=== PATIENT | male | born 1970 | race Caucasian/White ===

== ENCOUNTER 2023-08-11 11:49 | Observation (INO) ==
--- NOTE | 2023-08-11 12:04 | DR.ABDMALE ---
HPI Time seen Time Seen by Provider: 08/11/23 12:03 COVID-19 Coronavirus risk:travel/contact w/high risk person: No Has patient experienced Coronavirus symptoms: No Reviewed Nurses Notes Review: Yes PE Vital Signs Vital Signs: Temp Pulse Resp BP Pulse Ox O2 Del Method 08/11/23 13:00 20 08/11/23 13:57 18 08/11/23 13:28 18 08/11/23 14:30 16 08/11/23 13:30 67 93 L 08/11/23 13:15 70 94 L 08/11/23 13:00 67 97 08/11/23 12:50 66 96 08/11/23 13:27 20 08/11/23 12:58 20 08/11/23 12:36 130/73 08/11/23 12:36 66 30 H 96 08/11/23 12:30 65 28 H 98 08/11/23 12:30 98.7 F 63 20 141/78 100 Room Air 08/11/23 12:30 22 ROR Labs Reviewed 08/11/23 12:25 08/11/23 12:25 Laboratory: WBC 8.5 X10^3/uL (3.6-10.0) 08/11/23 12:25 RBC 4.84 X10^6/uL (4.7-6.0) 08/11/23 12:25 Hgb 14.6 g/dL (13.5-18.0) 08/11/23 12:25 Hct 42.9 % (42.0-54.0) 08/11/23 12:25 MCV 88.6 fL (80.0-100.0) 08/11/23 12:25 MCH 30.1 pg (27.0-34.0) 08/11/23 12:25 MCHC 34.0 g/dL (33.0-35.0) 08/11/23 12:25 RDW 13.6 % (11.6-16.5) 08/11/23 12:25 Plt Count 225 X10^3/uL (150.0-450.0) 08/11/23 12:25 MPV 8.3 fL (7.4-11.0) 08/11/23 12:25 Neut % (Auto) 70.0 % (42.0-75.0) 08/11/23 12:25 Lymph % (Auto) 18.7 % (21.0-51.0) L 08/11/23 12:25 [place] % (Auto) 8.2 % (0.0-13.0) 08/11/23 12:25 Eos % (Auto) 2.6 % (0.9-2.9) 08/11/23 12:25 Baso % (Auto) 0.5 % (0.2-1.0) 08/11/23 12:25 Neut # (Auto) 6.0 x10^3/uL (2.2-4.8) H 08/11/23 12:25 Lymph # (Auto) 1.6 X10^3/uL (1.3-2.9) 08/11/23 12:25 [place] # (Auto) 0.7 x10^3/uL (0.3-0.8) 08/11/23 12:25 Eos # (Auto) 0.2 x10^3/uL (0.0-0.2) 08/11/23 12:25 Baso # (Auto) 0.0 X10^3/uL (0.0-0.1) 08/11/23 12:25 Absolute Nucleated RBC 0.1 /100WBC 08/11/23 12:25 Sodium 136 mmol/L (136-145) 08/11/23 12:25 Corrected Sodium TNP 08/11/23 12:25 Potassium 4.0 mmol/L (3.5-5.1) 08/11/23 12:25 Chloride 98 mmol/L (98-107) 08/11/23 12:25 Carbon Dioxide 30.1 mmol/L (21-32) 08/11/23 12:25 BUN 18 mg/dL (7-18) 08/11/23 12:25 Creatinine 2.00 mg/dL (0.70-1.30) H 08/11/23 12:25 Est GFR (MDRD) Af Amer 45 (>60) L 08/11/23 12:25 Est GFR (MDRD) Non-Af 37 (>60) L 08/11/23 12:25 Glucose 105 mg/dL (65-99) H 08/11/23 12:25 Calcium 7.9 mg/dL (8.5-10.1) L 08/11/23 12:25 Corrected Calcium 8.5 mg/dL (8.5-10.1) 08/11/23 12:25 Total Bilirubin 0.50 mg/dL (0.2-1.0) 08/11/23 12:25 AST 20 Units/L (15-37) 08/11/23 12:25 ALT 40 Units/L (12-78) 08/11/23 12:25 Alkaline Phosphatase 109 Units/L (46-116) 08/11/23 12:25 Total Protein 6.9 g/dL (6.4-8.2) 08/11/23 12:25 Albumin 3.3 g/dL (3.4-5.0) L 08/11/23 12:25 Globulin 3.6 g/dL (2.5-4.5) 08/11/23 12:25 Albumin/Globulin Ratio 0.9 Ratio (1.1-2.1) L 08/11/23 12:25 Opioid Opioid Risk Tool Age (Darnell box if 16-45): No History of Preadolescent Sexual Abuse: No Total: 0 Total Score Risk Category: Low Risk Copyright: Christopher LIZAMA predicting aberrant behaviors Discharge Plan Diagnosis Discharge Problem: Abdominal pain, acute, right lower quadrant Discharge Plan Patient Disposition: 01 HOME, SELF-CARE Condition: Stable Orders to Discharge Patient Discharge Orders: Transfer (Routine); Ordered 08/11/23 Ordered By: SUMA CHEW
[2023-08-11] MEDS ORDERED: NS 1,000 ML IV 1,000 ML ONE ×2 (12:16→14:27)
[2023-08-11] MEDS ORDERED: ZOFRAN INJ 4 MG VIAL ONE (12:16)
[2023-08-11] MEDS ORDERED: MORPHINE SULFATE INJ 2 MG INJ ONE ×2 (12:20→12:32)
[2023-08-11] MEDS ORDERED: ZOFRAN INJ 4 MG VIAL IVP ONE (12:26)
[2023-08-11] MEDS ORDERED: MORPHINE SULFATE INJ 4 MG IVP ONE (12:26)
[2023-08-11] MEDS: NS 1,000 ML IV 1,000 ML IV ONE ×2 (12:29→12:30)
[2023-08-11] MEDS: NS 1,000 ML IV 1,000 ML IV SCH ×3 (12:30→17:07)
[2023-08-11 12:33] LABS: BASOPHILS % (AUTO) 0.5 % (0.2-1.0); EOSINOPHILS # (AUTO) 0.2 x10^3/uL (0.0-0.2); EOSINOPHILS % (AUTO) 2.6 % (0.9-2.9); HEMATOCRIT 42.9 % (42.0-54.0); HEMOGLOBIN 14.6 g/dL (13.5-18.0); LYMPHOCYTES # (AUTO) 1.6 X10^3/uL (1.3-2.9); LYMPHOCYTES % (AUTO) 18.7 % (21.0-51.0); MEAN CORPUSCULAR HEMOGLOBIN 30.1 pg (27.0-34.0); MEAN CORPUSCULAR VOLUME 88.6 fL (80.0-100.0); MEAN PLATELET VOLUME 8.3 fL (7.4-11.0); MONOCYTES # (AUTO) 0.7 x10^3/uL (0.3-0.8); MONOCYTES % (AUTO) 8.2 % (0.0-13.0); PLATELET COUNT 225 X10^3/uL (150.0-450.0); RED BLOOD COUNT 4.84 X10^6/uL (4.7-6.0); RED CELL DISTRIBUTION WIDTH 13.6 % (11.6-16.5); WHITE BLOOD COUNT 8.5 X10^3/uL (3.6-10.0)
[2023-08-11 12:36] VITALS: BMI 39.0
[2023-08-11 12:45] LABS: ALANINE AMINOTRANSFERASE 40 Units/L (12-78); ALBUMIN 3.3 g/dL (3.4-5.0); ALKALINE PHOSPHATASE 109 Units/L (46-116); ASPARTATE AMINO TRANSFERASE 20 Units/L (15-37); BLOOD UREA NITROGEN 18 mg/dL (7-18); CALCIUM 7.9 mg/dL (8.5-10.1); CARBON DIOXIDE 30.1 mmol/L (21-32); CHLORIDE 98 mmol/L (98-107); COR CA(FOR HYPOALB) 8.5 mg/dL (8.5-10.1); GLUCOSE 105 mg/dL (65-99); SODIUM 136 mmol/L (136-145); TOTAL PROTEIN 6.9 g/dL (6.4-8.2); eGFR NON BLACK RACES 37 (>60)
[2023-08-11] MEDS ORDERED: DILAUDID INJ ONE ×3 (12:52→14:21)
[2023-08-11] MEDS ORDERED: DILAUDID INJ IVP ONE ×3 (12:54→14:20)
--- NOTE | 2023-08-11 13:43 | CT ---
EXAM:ABDOMEN/PELVIS W/O CONHISTORY:PAIN;COMPARISON:None available.TECHNIQUE:Helical CT images of the abdomen and pelvis. ABDOMEN/PELVIS W/O CON. Coronal and sagittal images are obtained. Dose reduction techniques including Automated Exposure Control (AEC) and adjustment of mA and kV were utilized.FINDINGS:Lower chest: No significant abnormality.Liver: Diffuse hepatic steatosis.Gallbladder and Bile Ducts:Surgical clips in gallbladder fossa consistent with a surgically absent gallbladder.Pancreas: No significant abnormalitySpleen: No significant abnormalityAdrenals: No significant abnormalityKidneys: No significant abnormalityBladder: No significant abnormalityReproductive Structures: No significant abnormality.Bowel and Stomach: No significant abnormalityAppendix: No evidence for acute appendicitis.Lymph Nodes: No significant lymphadenopathyVasculature: Abdominal aorta and branching vessels are normal in caliberOther: No free air, free fluid, or focal fluid collectionOsseous Structures: No acute osseous findingsIMPRESSION:1. Diffuse hepatic steatosis.2. 2 cm diameter inguinal fatty hernias noted.THIS IS AN ELECTRONICALLY VERIFIED FINAL [id number]/11/2023 1:40 PM - Electronically signed by Robe Phelan DO
[2023-08-11] MEDS ORDERED: COMPAZINE INJ IVP ONE (14:50)
[2023-08-11] MEDS ORDERED: COMPAZINE INJ ONE (14:50)
[2023-08-11] MEDS ORDERED: ZOFRAN INJ 4 MG VIAL IVP PRN (16:52)
[2023-08-11 19:24] LABS: BILIRUBIN,URINE NEGATIVE (NEGATIVE); BLOOD/HEMOGLOBIN,URINE NEGATIVE (NEGATIVE); GLUCOSE, URINE NEGATIVE (NEGATIVE); KETONES,URINE NEGATIVE (NEGATIVE); LEUKOCYTE ESTERASE ,URINE 2+ (NEGATIVE); NITRITES,URINE NEGATIVE (NEGATIVE); PROTEIN,URINE NEGATIVE (NEGATIVE); UROBILINOGEN,URINE NORMAL (NORMAL)
[2023-08-11 19:34] LABS: APPEARANCE,URINE CLEAR (CLEAR); BACTERIA,URINE TRACE /HPF (NEGATIVE); COLOR,URINE PALE YELLOW (YELLOW); RBC,URINE 0-2 /HPF (0-3); SQUAMOUS EPITHELIAL CELL,UR RARE /HPF (NEGATIVE)
[2023-08-11 19:35] LABS: OTHER CASTS, URINE RARE /LPF (NEGATIVE)
[2023-08-11] MEDS: DILAUDID INJ IVP PRN ×2 (19:38→23:38)
--- NOTE | 2023-08-11 22:45 | DR.H&P ---
H&P History & Physical for Day of: H&P Date: 08/11/23 Chief Complaint Chief Complaint: acute onset RLQ pain Allergies Allergies Allergy/AdvReac Type Severity Reaction Status Date / Time shrimp Allergy Unknown Verified 09/28/21 10:16 History of Present Illness History of Present Illness: 53 yo male with acute onset RLQ pain this AM with nausea and vomiting. evaluated in ER. WBC not elevated.CT unremarkable Past Medical History Past Medical History: Dyslipidemia, Hyperthyroidism and Hypothyroidism Past Surgical History Surgical History: Cholecystectomy and Thyroidectomy Family History Family Medical History: Diabetes Mellitus and Hypertension Social History Does patient currently use any type of tobacco product: No Have you used tobacco products in the last 12 months: No Type of Tobacco Use: None Does any household member use tobacco: No Alcohol Use: None Drug Use: None Medications Home Medications: Home Medications Medication Instructions Recorded Confirmed Type alprazolam 1 mg tablet 2 mg PO HS PRN 08/11/23 08/11/23 History atenolol 100 mg tablet 100 mg PO QDAY 08/11/23 08/11/23 History cyclobenzaprine 10 mg tablet 20 mg PO HS 08/11/23 08/11/23 History levothyroxine 112 mcg tablet 112 mcg PO QDAY 08/11/23 08/11/23 History losartan 100 mg tablet 100 mg PO HS 08/11/23 08/11/23 History omeprazole 40 mg capsule,delayed 40 mg PO HS 08/11/23 08/11/23 History release temazepam 30 mg capsule 60 mg PO HS PRN 08/11/23 08/11/23 History Labs 08/11/23 12:25 08/11/23 12:25 Labs: Laboratory WBC 8.5 X10^3/uL (3.6-10.0) 08/11/23 12:25 RBC 4.84 X10^6/uL (4.7-6.0) 08/11/23 12:25 Hgb 14.6 g/dL (13.5-18.0) 08/11/23 12:25 Hct 42.9 % (42.0-54.0) 08/11/23 12:25 MCV 88.6 fL (80.0-100.0) 08/11/23 12:25 MCH 30.1 pg (27.0-34.0) 08/11/23 12:25 MCHC 34.0 g/dL (33.0-35.0) 08/11/23 12:25 RDW 13.6 % (11.6-16.5) 08/11/23 12:25 Plt Count 225 X10^3/uL (150.0-450.0) 08/11/23 12:25 MPV 8.3 fL (7.4-11.0) 08/11/23 12:25 Neut % (Auto) 70.0 % (42.0-75.0) 08/11/23 12:25 Lymph % (Auto) 18.7 % (21.0-51.0) L 08/11/23 12:25 [place] % (Auto) 8.2 % (0.0-13.0) 08/11/23 12:25 Eos % (Auto) 2.6 % (0.9-2.9) 08/11/23 12:25 Baso % (Auto) 0.5 % (0.2-1.0) 08/11/23 12:25 Neut # (Auto) 6.0 x10^3/uL (2.2-4.8) H 08/11/23 12:25 Lymph # (Auto) 1.6 X10^3/uL (1.3-2.9) 08/11/23 12:25 [place] # (Auto) 0.7 x10^3/uL (0.3-0.8) 08/11/23 12:25 Eos # (Auto) 0.2 x10^3/uL (0.0-0.2) 08/11/23 12:25 Baso # (Auto) 0.0 X10^3/uL (0.0-0.1) 08/11/23 12:25 Absolute Nucleated RBC 0.1 /100WBC 08/11/23 12:25 Sodium 136 mmol/L (136-145) 08/11/23 12:25 Corrected Sodium TNP 08/11/23 12:25 Potassium 4.0 mmol/L (3.5-5.1) 08/11/23 12:25 Chloride 98 mmol/L (98-107) 08/11/23 12:25 Carbon Dioxide 30.1 mmol/L (21-32) 08/11/23 12:25 BUN 18 mg/dL (7-18) 08/11/23 12:25 Creatinine 2.00 mg/dL (0.70-1.30) H 08/11/23 12:25 Est GFR (MDRD) Af Amer 45 (>60) L 08/11/23 12:25 Est GFR (MDRD) Non-Af 37 (>60) L 08/11/23 12:25 Glucose 105 mg/dL (65-99) H 08/11/23 12:25 Calcium 7.9 mg/dL (8.5-10.1) L 08/11/23 12:25 Corrected Calcium 8.5 mg/dL (8.5-10.1) 08/11/23 12:25 Total Bilirubin 0.50 mg/dL (0.2-1.0) 08/11/23 12:25 AST 20 Units/L (15-37) 08/11/23 12:25 ALT 40 Units/L (12-78) 08/11/23 12:25 Alkaline Phosphatase 109 Units/L (46-116) 08/11/23 12:25 Total Protein 6.9 g/dL (6.4-8.2) 08/11/23 12:25 Albumin 3.3 g/dL (3.4-5.0) L 08/11/23 12:25 Globulin 3.6 g/dL (2.5-4.5) 08/11/23 12:25 Albumin/Globulin Ratio 0.9 Ratio (1.1-2.1) L 08/11/23 12:25 Specimen Type Clean catch urine 08/11/23 19:08 Urine Color Pale yellow (YELLOW) 08/11/23 19:08 Urine Appearance Clear (CLEAR) 08/11/23 19:08 Urine pH 5.0 (5.0 - 8.0) 08/11/23 19:08 Ur Specific [place] 1.020 (1.000-1.030) 08/11/23 19:08 Urine Protein Negative (NEGATIVE) 08/11/23 19:08 Urine Glucose (UA) Negative (NEGATIVE) 08/11/23 19:08 Urine Ketones Negative (NEGATIVE) 08/11/23 19:08 Urine Blood Negative (NEGATIVE) 08/11/23 19:08 Urine Nitrite Negative (NEGATIVE) 08/11/23 19:08 Urine Bilirubin Negative (NEGATIVE) 08/11/23 19:08 Urine Urobilinogen Normal (NORMAL) 08/11/23 19:08 Ur Leukocyte Esterase 2+ (NEGATIVE) 08/11/23 19:08 Urine RBC 0-2 /HPF (0-3) 08/11/23 19:08 Urine WBC 30-50 /HPF (0-5) A 08/11/23 19:08 Ur Squamous Epith Cells Rare /HPF (NEGATIVE) 08/11/23 19:08 Urine Bacteria Trace /HPF (NEGATIVE) 08/11/23 19:08 Other Casts Rare /LPF (NEGATIVE) 08/11/23 19:08 Urine Mucus Rare /HPF (NEGATIVE) 08/11/23 19:08 Ur Culture Indicated? Yes/culture set up 08/11/23 19:08 Review of Systems Constitutional: See HPI Eyes: No Symptoms Reported ENT: No Symptoms Reported Respiratory: No Symptoms Reported Cardiovascular: No Symptoms Reported Genitourinary: No Symptoms Reported Musculoskeletal: No Symptoms Reported Skin: No Symptoms Reported Neurological: No Symptoms Reported Physical Exam Vital Signs: Vital Signs Temperature 97.9 F Temperature 97.3 F Pulse Rate [Left] 64 Pulse Rate [Left] 57 Pulse Rate 66 Pulse Rate 61 Pulse Rate 56 Pulse Rate 59 Pulse Rate 68 Pulse Rate 65 Respiratory Rate 20 Respiratory Rate 18 Respiratory Rate 18 Respiratory Rate 18 Blood Pressure [Right Arm] 106/59 Blood Pressure [Right Arm] 104/57 O2 Sat by Pulse Oximetry 95 O2 Sat by Pulse Oximetry 97 O2 Sat by Pulse Oximetry 95 O2 Sat by Pulse Oximetry 96 O2 Sat by Pulse Oximetry 94 O2 Sat by Pulse Oximetry 92 O2 Sat by Pulse Oximetry 94 Oriented: Normal, Time, Person and Place Eyes: Normal Ear: Normal Nose: Normal Throat: Normal Respiratory: Clear Throughout Cardiovascular: Normal : Normal Auscultation: Bowel Sounds: Normal Palpation: Other (no masses) Tenderness: RLQ (no rebound or guarding) Skin: Normal Musculoskeletal: Normal Psychiatric: Normal Mood Description: Calm Affect: Normal Speech Pattern: Clear Assessment/Plan (1) Abdominal pain, acute, right lower quadrant: Status: Acute Plan: NPO, IVFS repeat labs in AM . If not improved clinically with perform laparoscopy and laparoscopic appendectomy.
[2023-08-12] MEDS: NS 1,000 ML IV 1,000 ML IV SCH (04:24)
[2023-08-12] MEDS: DILAUDID INJ IVP PRN (04:31)
[2023-08-12] MEDS ORDERED: HIBICLENS WASH EXT ONE (04:35)
[2023-08-12] MEDS ORDERED: HIBICLENS WASH ONE (04:37)
[2023-08-12 05:49] VITALS: RESP 18
[2023-08-12 06:37] LABS: BASOPHILS % (AUTO) 0.3 % (0.2-1.0); EOSINOPHILS # (AUTO) 0.2 x10^3/uL (0.0-0.2); EOSINOPHILS % (AUTO) 2.7 % (0.9-2.9); HEMATOCRIT 41.1 % (42.0-54.0); HEMOGLOBIN 13.9 g/dL (13.5-18.0); LYMPHOCYTES # (AUTO) 1.5 X10^3/uL (1.3-2.9); LYMPHOCYTES % (AUTO) 19.5 % (21.0-51.0); MEAN CORPUSCULAR HGB CONC 33.9 g/dL (33.0-35.0); MEAN CORPUSCULAR VOLUME 88.5 fL (80.0-100.0); MEAN PLATELET VOLUME 9.2 fL (7.4-11.0); MONOCYTES # (AUTO) 0.6 x10^3/uL (0.3-0.8); MONOCYTES % (AUTO) 8.5 % (0.0-13.0); NEUTROPHILS # (AUTO) 5.3 x10^3/uL (2.2-4.8); PLATELET COUNT 203 X10^3/uL (150.0-450.0); RED BLOOD COUNT 4.65 X10^6/uL (4.7-6.0); RED CELL DISTRIBUTION WIDTH 14.1 % (11.6-16.5); WHITE BLOOD COUNT 7.6 X10^3/uL (3.6-10.0)
[2023-08-12 07:04] LABS: ALANINE AMINOTRANSFERASE 35 Units/L (12-78); ALBUMIN 2.9 g/dL (3.4-5.0); ALKALINE PHOSPHATASE 96 Units/L (46-116); AMYLASE 22 Units/L (25-115); ASPARTATE AMINO TRANSFERASE 22 Units/L (15-37); BLOOD UREA NITROGEN 19 mg/dL (7-18); CALCIUM 7.7 mg/dL (8.5-10.1); CARBON DIOXIDE 31.8 mmol/L (21-32); CHLORIDE 102 mmol/L (98-107); COR CA(FOR HYPOALB) 8.6 mg/dL (8.5-10.1); CREATININE 1.78 mg/dL (0.70-1.30); GLUCOSE 97 mg/dL (65-99); LIPASE 25 Units/L (16-77); POTASSIUM 4.2 mmol/L (3.5-5.1); SODIUM 139 mmol/L (136-145); TOTAL PROTEIN 6.2 g/dL (6.4-8.2); eGFR NON BLACK RACES 43 (>60)
[2023-08-12 08:18] VITALS: BP 103/55; PULSE 78; TEMP 98.3; O2SAT 93
--- NOTE | 2023-08-13 16:17 | W.DIS.FURT ---
Summary of Discharge Discharge Summary of Date Date of Exam: 08/11/23 Admission Date Date of Admission: 08/11/23 Admission Diagnosis Patient Problems (Updated 08/11/23 @ 15:33 by SUMA CHEW) Abdominal pain, acute, right lower quadrant (Acute) R10.31 Hospital Course: 53 yo male admitted with acute onset RLQ pain the AM of admission. Seen in the ER. Afebile, WBC wnl and CT without contrast showed no evidence of acute appendicitis. On exam had rebound. Admitted , hydrated and remained NPO. Repeat WBC the next AM alos WNL. C/O RLQ pain but it was better and on exam had benign abdomen withe no tenderness to palpation and no rebound . Discharged and is to call me tomorrow for follow up and call any time for change in or worsening of symptoms. Vital Signs: Vital Signs (72 hours) 08/11/23 12:30 08/11/23 12:30 08/11/23 12:30 Temperature 98.7 F Pulse Rate 63 65 Pulse Rate [Left] Respiratory Rate 22 20 28 H Blood Pressure 141/78 Blood Pressure [Right Arm] O2 Sat by Pulse Oximetry 100 98 Oxygen Delivery Method Room Air FIO2% 08/11/23 12:36 08/11/23 12:36 08/11/23 12:58 Temperature Pulse Rate 66 Pulse Rate [Left] Respiratory Rate 30 H 20 Blood Pressure 130/73 Blood Pressure [Right Arm] O2 Sat by Pulse Oximetry 96 Oxygen Delivery Method FIO2% 08/11/23 13:27 08/11/23 12:50 08/11/23 13:00 Temperature Pulse Rate 66 67 Pulse Rate [Left] Respiratory Rate 20 Blood Pressure Blood Pressure [Right Arm] O2 Sat by Pulse Oximetry 96 97 Oxygen Delivery Method FIO2% 08/11/23 13:15 08/11/23 13:30 08/11/23 14:30 Temperature Pulse Rate 70 67 Pulse Rate [Left] Respiratory Rate 16 Blood Pressure Blood Pressure [Right Arm] O2 Sat by Pulse Oximetry 94 L 93 L Oxygen Delivery Method FIO2% 08/11/23 13:28 08/11/23 13:57 08/11/23 13:00 Temperature Pulse Rate Pulse Rate [Left] Respiratory Rate 18 18 20 Blood Pressure Blood Pressure [Right Arm] O2 Sat by Pulse Oximetry Oxygen Delivery Method FIO2% 08/11/23 13:45 08/11/23 14:23 08/11/23 14:30 Temperature Pulse Rate 66 65 66 Pulse Rate [Left] Respiratory Rate Blood Pressure Blood Pressure [Right Arm] O2 Sat by Pulse Oximetry 95 96 96 Oxygen Delivery Method FIO2% 08/11/23 14:45 08/11/23 15:00 08/11/23 15:15 Temperature Pulse Rate 65 68 59 L Pulse Rate [Left] Respiratory Rate Blood Pressure Blood Pressure [Right Arm] O2 Sat by Pulse Oximetry 94 L 92 L 94 L Oxygen Delivery Method FIO2% 08/11/23 15:30 08/11/23 15:45 08/11/23 16:00 Temperature Pulse Rate 56 L 61 66 Pulse Rate [Left] Respiratory Rate Blood Pressure Blood Pressure [Right Arm] O2 Sat by Pulse Oximetry 96 95 97 Oxygen Delivery Method FIO2% 08/11/23 16:40 08/11/23 16:04 08/11/23 16:56 Temperature 97.3 F L Pulse Rate Pulse Rate [Left] 57 L Respiratory Rate 18 Blood Pressure Blood Pressure [Right Arm] 104/57 O2 Sat by Pulse Oximetry Oxygen Delivery Method Room Air Room Air Room Air FIO2% 08/11/23 19:38 08/11/23 23:38 08/11/23 19:00 Temperature Pulse Rate Pulse Rate [Left] Respiratory Rate 18 20 Blood Pressure Blood Pressure [Right Arm] O2 Sat by Pulse Oximetry Oxygen Delivery Method Room Air FIO2% 08/11/23 20:08 08/11/23 20:00 08/11/23 23:46 Temperature 97.9 F 98.6 F Pulse Rate Pulse Rate [Left] 64 76 Respiratory Rate 20 18 18 Blood Pressure Blood Pressure [Right Arm] 106/59 121/62 O2 Sat by Pulse Oximetry 95 94 L Oxygen Delivery Method Room Air Room Air FIO2% 08/11/23 20:30 08/12/23 00:08 08/12/23 04:31 Temperature Pulse Rate Pulse Rate [Left] Respiratory Rate 22 22 Blood Pressure Blood Pressure [Right Arm] O2 Sat by Pulse Oximetry Oxygen Delivery Method Room Air FIO2% 21 08/12/23 04:00 08/12/23 05:01 08/12/23 08:00 Temperature 98.4 F 98.3 F Pulse Rate Pulse Rate [Left] 77 78 Respiratory Rate 18 18 18 Blood Pressure Blood Pressure [Right Arm] 128/60 103/55 O2 Sat by Pulse Oximetry 94 L 93 L Oxygen Delivery Method Room Air Room Air FIO2% 08/12/23 08:38 08/12/23 07:00 Temperature Pulse Rate Pulse Rate [Left] Respiratory Rate Blood Pressure Blood Pressure [Right Arm] O2 Sat by Pulse Oximetry Oxygen Delivery Method Room Air Room Air FIO2% Labs: Laboratory Last Values WBC 7.6 X10^3/uL (3.6-10.0) 08/12/23 05:24 RBC 4.65 X10^6/uL (4.7-6.0) L 08/12/23 05:24 Hgb 13.9 g/dL (13.5-18.0) 08/12/23 05:24 Hct 41.1 % (42.0-54.0) L 08/12/23 05:24 MCV 88.5 fL (80.0-100.0) 08/12/23 05:24 MCH 30.0 pg (27.0-34.0) 08/12/23 05:24 MCHC 33.9 g/dL (33.0-35.0) 08/12/23 05:24 RDW 14.1 % (11.6-16.5) 08/12/23 05:24 Plt Count 203 X10^3/uL (150.0-450.0) 08/12/23 05:24 MPV 9.2 fL (7.4-11.0) 08/12/23 05:24 Neut % (Auto) 69.0 % (42.0-75.0) 08/12/23 05:24 Lymph % (Auto) 19.5 % (21.0-51.0) L 08/12/23 05:24 [place] % (Auto) 8.5 % (0.0-13.0) 08/12/23 05:24 Eos % (Auto) 2.7 % (0.9-2.9) 08/12/23 05:24 Baso % (Auto) 0.3 % (0.2-1.0) 08/12/23 05:24 Neut # (Auto) 5.3 x10^3/uL (2.2-4.8) H 08/12/23 05:24 Lymph # (Auto) 1.5 X10^3/uL (1.3-2.9) 08/12/23 05:24 [place] # (Auto) 0.6 x10^3/uL (0.3-0.8) 08/12/23 05:24 Eos # (Auto) 0.2 x10^3/uL (0.0-0.2) 08/12/23 05:24 Baso # (Auto) 0.0 X10^3/uL (0.0-0.1) 08/12/23 05:24 Absolute Nucleated RBC 0.3 /100WBC 08/12/23 05:24 Sodium 139 mmol/L (136-145) 08/12/23 05:24 Corrected Sodium TNP 08/12/23 05:24 Potassium 4.2 mmol/L (3.5-5.1) 08/12/23 05:24 Chloride 102 mmol/L (98-107) 08/12/23 05:24 Carbon Dioxide 31.8 mmol/L (21-32) 08/12/23 05:24 BUN 19 mg/dL (7-18) H 08/12/23 05:24 Creatinine 1.78 mg/dL (0.70-1.30) H 08/12/23 05:24 Est GFR (MDRD) Af Amer 52 (>60) L 08/12/23 05:24 Est GFR (MDRD) Non-Af 43 (>60) L 08/12/23 05:24 Glucose 97 mg/dL (65-99) 08/12/23 05:24 Calcium 7.7 mg/dL (8.5-10.1) L 08/12/23 05:24 Corrected Calcium 8.6 mg/dL (8.5-10.1) 08/12/23 05:24 Total Bilirubin 0.60 mg/dL (0.2-1.0) 08/12/23 05:24 AST 22 Units/L (15-37) 08/12/23 05:24 ALT 35 Units/L (12-78) 08/12/23 05:24 Alkaline Phosphatase 96 Units/L (46-116) 08/12/23 05:24 Total Protein 6.2 g/dL (6.4-8.2) L 08/12/23 05:24 Albumin 2.9 g/dL (3.4-5.0) L 08/12/23 05:24 Globulin 3.3 g/dL (2.5-4.5) 08/12/23 05:24 Albumin/Globulin Ratio 0.9 Ratio (1.1-2.1) L 08/12/23 05:24 Amylase 22 Units/L (25-115) L 08/12/23 05:24 Lipase 25 Units/L (16-77) 08/12/23 05:24 Specimen Type Clean catch urine 08/11/23 19:08 Urine Color Pale yellow (YELLOW) 08/11/23 19:08 Urine Appearance Clear (CLEAR) 08/11/23 19:08 Urine pH 5.0 (5.0 - 8.0) 08/11/23 19:08 Ur Specific [place] 1.020 (1.000-1.030) 08/11/23 19:08 Urine Protein Negative (NEGATIVE) 08/11/23 19:08 Urine Glucose (UA) Negative (NEGATIVE) 08/11/23 19:08 Urine Ketones Negative (NEGATIVE) 08/11/23 19:08 Urine Blood Negative (NEGATIVE) 08/11/23 19:08 Urine Nitrite Negative (NEGATIVE) 08/11/23 19:08 Urine Bilirubin Negative (NEGATIVE) 08/11/23 19:08 Urine Urobilinogen Normal (NORMAL) 08/11/23 19:08 Ur Leukocyte Esterase 2+ (NEGATIVE) 08/11/23 19:08 Urine RBC 0-2 /HPF (0-3) 08/11/23 19:08 Urine WBC 30-50 /HPF (0-5) A 08/11/23 19:08 Ur Squamous Epith Cells Rare /HPF (NEGATIVE) 08/11/23 19:08 Urine Bacteria Trace /HPF (NEGATIVE) 08/11/23 19:08 Other Casts Rare /LPF (NEGATIVE) 08/11/23 19:08 Urine Mucus Rare /HPF (NEGATIVE) 08/11/23 19:08 Ur Culture Indicated? Yes/culture set up 08/11/23 19:08 Reason For Visit: RIGHT LOWER QUARDRANT ABDOMINAL PAIN Discharge Date Discharge Date: 08/12/23 Discharge Diagnosis All Active Problems (Updated 08/11/23 @ 15:33 by SUMA CHEW) Abdominal pain, acute, right lower quadrant (Acute) COVID-19 (Acute) Plan of Treatment: Continue with present treatment and follow up plan. Pt is to keep follow up appointment as instructed and take medications as ordered. Discharge Medications Discharge Medications: shrimp Allergy (Unknown, Verified 09/28/21 10:16) CONTINUE taking the following medications alprazolam 1 mg tablet 2 mg PO HS PRN 08/11/23 [History] atenolol 100 mg tablet 100 mg PO QDAY 08/11/23 [History] cyclobenzaprine 10 mg tablet 20 mg PO HS 08/11/23 [History] levothyroxine 112 mcg tablet 112 mcg PO QDAY 08/11/23 [History] losartan 100 mg tablet 100 mg PO HS 08/11/23 [History] omeprazole 40 mg capsule,delayed release 40 mg PO HS 08/11/23 [History] temazepam 30 mg capsule 60 mg PO HS PRN 08/11/23 [History] Discharge Disposition Assessment: see hospital course Discharge Plan Discharge Plan Hospital Course: 53 yo male admitted with acute onset RLQ pain the AM of admission. Seen in the ER. Afebile, WBC wnl and CT without contrast showed no evidence of acute appendicitis. On exam had rebound. Admitted , hydrated and remained NPO. Repeat WBC the next AM alos WNL. C/O RLQ pain but it was better and on exam had benign abdomen withe no tenderness to palpation and no rebound . Discharged and is to call me tomorrow for follow up and call any time for change in or worsening of symptoms. Patient Disposition: 01 HOME, SELF-CARE Condition: Stable Health Concerns: Post Hospitalization: new medications and changes needed to prevent readmission or further decline. Pt educated and given instructions on all concerns. Plan of Treatment: Continue with present treatment and follow up plan. Pt is to keep follow up appointment as instructed and take medications as ordered. Assessment: see hospital course Prescription drug monitoring program results: PDMP was not reviewed Prescriptions: Continued atenolol 100 mg tablet 100 mg PO QDAY losartan 100 mg tablet 100 mg PO HS levothyroxine 112 mcg tablet 112 mcg PO QDAY alprazolam 1 mg tablet 2 mg PO HS PRN temazepam 30 mg capsule 60 mg PO HS PRN cyclobenzaprine 10 mg tablet 20 mg PO HS omeprazole 40 mg capsule,delayed release(DR/EC) 40 mg PO HS Orders to Discharge Patient Discharge Orders: Discharge (Routine); Ordered 08/12/23 Ordered By: Yaakov Elizabeth Instructions Stand Alone Forms: Excuse From Work or School, Post Hospital Follow Up Care
== END 2023-08-12 10:45 | disposition home or self-care (01) ==
LOC: ER 11:49 → MED/SURG 12:15
PROVIDERS: ADMIT Surgery; ATTEND Surgery
DX: I10 Essential (primary) hypertension; N28.89 Other specified disorders of kidney and ureter; Z79.899 Other long term (current) drug therapy; K21.9 Gastro-esophageal reflux disease without esophagitis; R10.31 Right lower quadrant pain

== ENCOUNTER 2024-04-23 06:58 | Observation (INO) ==
[2024-04-23] MEDS: NS 1,000 ML IV 1,000 ML IV ONE (07:14)
--- NOTE | 2024-04-23 07:15 | DR.GENAD ---
HPI Time Seen Time Seen by Provider: 04/23/24 07:06 HPI Comment HPI Comment: History as above. Complaint/Symptoms Chief Complaint Doctors Comments: Patient is 54-year-old male in the emergency room with right flank pain that started suddenly COVID-19 Coronavirus risk:travel/contact w/high risk person: No Has patient experienced Coronavirus symptoms: No Nurses notes reviewed Nurses Notes Review: Yes PMH PMH Past Medical History: Yes Past Medical History: Dyslipidemia, Hyperthyroidism and Hypothyroidism Past Surgical History: Yes Surgical History: Cholecystectomy and Thyroidectomy Family History History of Family Medical Conditions: Yes Family Medical History: Diabetes Mellitus and Hypertension Social History Does patient currently use any type of tobacco product: No Have you used tobacco products in the last 12 months: No Type of Tobacco Use: None Does any household member use tobacco: No Alcohol Use: Occasionally Do you use any recreational Drugs:: No Lives With: Family Lives Where: Home Travel Risk Coronavirus risk:travel/contact w/high risk person: No Has patient experienced Coronavirus symptoms: No Infectious screening In the last 2 months have you had wt loss of >10#?: NO Have you had fever, night sweats or hemotysis?: No Have you traveled outside the country in the last 6 months?: No Isolation: Standard ROS Review of Systems Constitutional: No Symptoms Reported Eyes: No Symptoms Reported ENTM: No Symptoms Reported Respiratoy: No Symptoms Reported Cardiovascular: No Symptoms Reported Gastrointestinal/Abdominal: No Symptoms Reported and Nausea; negative Abdominal Pain, Diarrhea or Vomiting Genitourinary: No Symptoms Reported and Pain; negative Dysuria or Hematuria Neurological: No Symptoms Reported Musculoskeletal: See HPI, Back Pain and Right Integumentary: No Symptoms Reported Hematologic/Lymphatic: No Symptoms Reported Endocrine: No Symptoms Reported Psychiatric: No Symptoms Reported PE Vital Signs Vitals: Vital Signs Temperature 97.9 F Pulse Rate 79 Respiratory Rate 18 Respiratory Rate 20 Respiratory Rate 20 Blood Pressure 114/63 O2 Sat by Pulse Oximetry 93 General Limitations: No Limitations General Appearance: Alert and In No Apparent Distress Head Head Exam: Normal Inspection Eyes Eye exam: Normal Appearance; negative Scleral Icterus or Conjunctival Injection ENT ENT Exam: Normal Exam, Normal Oropharynx, Normal External Ear Exam and TM's No rmal Bilaterally External Ear Exam: Normal External Inspection, Auricular Hematoma, Auricular Trauma and External Tenderness; negative Mastoid Tenderness TM/Canal Exam: Bilateral: Normal Nose Exam: Normal Nose Exam Mouth Exam: Normal Inspection Throat Exam: Normal Inspection; negative Tonsillar Erythema, Tonsillomegaly or Tonsillar Exudate Neck Neck Exam: Normal Inspection and Trachea Midline; negative Tenderness Chest Chest Inspection: Normal Inspection, Symmetric Chest Wall Rise and Tenderness (Right lower chest tenderness.) Respiratory Respiratory Exam: Normal Lung Sounds Bilat and Chest Wall Tenderness (Tenderness right lower chest.); negative Accessory Muscle Use or Respiratory Distress Respiratory Exam: Bilateral: Clear to Auscultation Cardiovascular Cardiovascular Exam: Regular Rate, Normal Rhythm and Normal Heart Sounds; negative Systolic Murmur or Diastolic Murmur Abdominal Exam Abdominal Exam: Normal Inspection, Normal Bowel Sounds, Soft and Tenderness Extremities Extremities Exam: Normal Inspection and Normal Capillary Refill Back Back Exam: (R) CVA Tenderness; negative (L) CVA Tenderness Neurologic Neurological Exam: Alert and Oriented X3; negative Motor Sensory Deficit Psychiatric Psychiatric Exam: Normal Affect and Normal Mood Skin Skin Exam: Warm and Intact MDM Differential Diagnosis Differential Diagnosis: Poss Kidney Stone COURSE Treatment Treatment: See treatment while in ED Reevaluation 1st: Improved Consultation Call Returned: 08:10 Consultation Comments: Dr Fernando agree to admit Education/Counseling Education/Counseling: Patient Educated On: Treatment and Needs for Follow Up ROR Labs Reviewed Laboratory Results Reviewed?: Yes 04/24/24 05:50 04/24/24 11:58 Laboratory: 04/23/24 08:30 Blood Blood Culture - Final 04/23/24 08:27 Blood Blood Culture - Final 04/23/24 07:20 Urine,Clean Catch Urine Culture - Final WBC 14.0 X10^3/uL (3.6-10.0) H 04/23/24 07:08 RBC 4.76 X10^6/uL (4.7-6.0) 04/23/24 07:08 Hgb 14.2 g/dL (13.5-18.0) 04/23/24 07:08 Hct 42.4 % (42.0-54.0) 04/23/24 07:08 MCV 89.0 fL (80.0-100.0) 04/23/24 07:08 MCH 29.8 pg (27.0-34.0) 04/23/24 07:08 MCHC 33.5 g/dL (33.0-35.0) 04/23/24 07:08 RDW 14.1 % (11.6-16.5) 04/23/24 07:08 Plt Count 279 X10^3/uL (150.0-450.0) 04/23/24 07:08 MPV 8.7 fL (7.4-11.0) 04/23/24 07:08 Neut % (Auto) 73.8 % (42.0-75.0) 04/23/24 07:08 Lymph % (Auto) 12.6 % (21.0-51.0) L 04/23/24 07:08 Isabella % (Auto) 12.0 % (0.0-13.0) 04/23/24 07:08 Eos % (Auto) 1.2 % (0.9-2.9) 04/23/24 07:08 Baso % (Auto) 0.4 % (0.2-1.0) 04/23/24 07:08 Neut # (Auto) 10.3 x10^3/uL (2.2-4.8) H 04/23/24 07:08 Lymph # (Auto) 1.8 X10^3/uL (1.3-2.9) 04/23/24 07:08 Isabella # (Auto) 1.7 x10^3/uL (0.3-0.8) H 04/23/24 07:08 Eos # (Auto) 0.2 x10^3/uL (0.0-0.2) 04/23/24 07:08 Baso # (Auto) 0.1 X10^3/uL (0.0-0.1) 04/23/24 07:08 Absolute Nucleated RBC 0.0 /100WBC 04/23/24 07:08 Sodium 136 mmol/L (136-145) 04/23/24 07:08 Corrected Sodium 137 mmol/L (136-145) 04/23/24 07:08 Potassium 4.7 mmol/L (3.5-5.1) 04/23/24 07:08 Chloride 102 mmol/L (98-107) 04/23/24 07:08 Carbon Dioxide 23.8 mmol/L (21-32) 04/23/24 07:08 BUN 40 mg/dL (7-18) H 04/23/24 07:08 Creatinine 2.93 mg/dL (0.70-1.30) H 04/23/24 07:08 Est GFR (MDRD) Af Amer 29 (>60) L 04/23/24 07:08 Est GFR (MDRD) Non-Af 24 (>60) L 04/23/24 07:08 Glucose 143 mg/dL (65-99) H 04/23/24 07:08 Lactic Acid 0.7 mmol/L (0.4-2.0) 04/23/24 08:27 Calcium 8.3 mg/dL (8.5-10.1) L 04/23/24 07:08 Corrected Calcium 9.0 mg/dL (8.5-10.1) 04/23/24 07:08 Total Bilirubin 0.90 mg/dL (0.2-1.0) 04/23/24 07:08 AST 15 Units/L (15-37) 04/23/24 07:08 ALT 31 Units/L (12-78) 04/23/24 07:08 Alkaline Phosphatase 107 Units/L (46-116) 04/23/24 07:08 Total Protein 7.3 g/dL (6.4-8.2) 04/23/24 07:08 Albumin 3.1 g/dL (3.4-5.0) L 04/23/24 07:08 Globulin 4.2 g/dL (2.5-4.5) 04/23/24 07:08 Albumin/Globulin Ratio 0.7 Ratio (1.1-2.1) L 04/23/24 07:08 Specimen Type Clean catch urine 04/23/24 07:20 Urine Color Yellow (YELLOW) 04/23/24 07:20 Urine Appearance Slightly hazy (CLEAR) 04/23/24 07:20 Urine pH 5.0 (5.0 - 8.0) 04/23/24 07:20 Ur Specific [place] 1.020 (1.000-1.030) 04/23/24 07:20 Urine Protein 1+ (NEGATIVE) 04/23/24 07:20 Urine Glucose (UA) Negative (NEGATIVE) 04/23/24 07:20 Urine Ketones Negative (NEGATIVE) 04/23/24 07:20 Urine Blood Negative (NEGATIVE) 04/23/24 07:20 Urine Nitrite Negative (NEGATIVE) 04/23/24 07:20 Urine Bilirubin Negative (NEGATIVE) 04/23/24 07:20 Urine Urobilinogen 1+ (NORMAL) 04/23/24 07:20 Ur Leukocyte Esterase 2+ (NEGATIVE) 04/23/24 07:20 Urine RBC 0-2 /HPF (0-3) 04/23/24 07:20 Urine WBC 10-20 /HPF (0-5) A 04/23/24 07:20 Ur Squamous Epith Cells Rare /HPF (NEGATIVE) 04/23/24 07:20 Urine Bacteria Trace /HPF (NEGATIVE) 04/23/24 07:20 Ur Culture Indicated? Yes/culture set up 04/23/24 07:20 SARS-CoV-2 (PCR) Negative (NEGATIVE) 04/23/24 08:17 Influenza Type A (PCR) Negative (NEGATIVE) 04/23/24 08:17 Influenza Type B (PCR) Negative (NEGATIVE) 04/23/24 08:17 RSV (PCR) Negative (NEGATIVE) 04/23/24 08:17 Resp Viral Panel (PCR) See scanned report 04/23/24 08:19 XRAY XRAY Interpreted by: Radiologist and Self X-ray Results: See Reports Opioid Opioid Risk Tool Age (Darnell box if 16-45): No History of Preadolescent Sexual Abuse: No Total: 0 Total Score Risk Category: Low Risk Copyright: Christopher LIZAMA predicting aberrant behaviors Management Prescription drug monitoring program results: PDMP was not reviewed Discharge Plan Diagnosis Discharge Problem: Dehydration, Flank pain Pneumonia Qualifiers: Pneumonia type: due to unspecified organism Laterality: right Lung location: lower lobe of lung Qualified Code(s): J18.9 - Pneumonia, unspecified organism Acute on chronic renal failure Qualifiers: Acute renal failure type: unspecified Chronic kidney disease stage: unspecified stage Qualified Code(s): N17.9 - Acute kidney failure, unspecified; N18.9 - Chronic kidney disease, unspecified Discharge Plan Patient Disposition: 09 ADMITTED INPATIENT Condition: Stable Orders to Discharge Patient Discharge Orders: Discharge (Routine); Ordered 04/24/24 Ordered By: Mehran Fernando
[2024-04-23] MEDS: ZOFRAN INJ 4 MG VIAL IVP ONE (07:16)
[2024-04-23] MEDS: TORADOL 30 MG VIAL IVP ONE (07:16)
[2024-04-23 07:20] LABS: BASOPHILS # (AUTO) 0.1 X10^3/uL (0.0-0.1); BASOPHILS % (AUTO) 0.4 % (0.2-1.0); EOSINOPHILS # (AUTO) 0.2 x10^3/uL (0.0-0.2); EOSINOPHILS % (AUTO) 1.2 % (0.9-2.9); HEMATOCRIT 42.4 % (42.0-54.0); HEMOGLOBIN 14.2 g/dL (13.5-18.0); LYMPHOCYTES # (AUTO) 1.8 X10^3/uL (1.3-2.9); LYMPHOCYTES % (AUTO) 12.6 % (21.0-51.0); MEAN CORPUSCULAR HEMOGLOBIN 29.8 pg (27.0-34.0); MEAN CORPUSCULAR HGB CONC 33.5 g/dL (33.0-35.0); MEAN PLATELET VOLUME 8.7 fL (7.4-11.0); MONOCYTES # (AUTO) 1.7 x10^3/uL (0.3-0.8); NEUTROPHILS # (AUTO) 10.3 x10^3/uL (2.2-4.8); NEUTROPHILS % (AUTO) 73.8 % (42.0-75.0); PLATELET COUNT 279 X10^3/uL (150.0-450.0); RED BLOOD COUNT 4.76 X10^6/uL (4.7-6.0); RED CELL DISTRIBUTION WIDTH 14.1 % (11.6-16.5)
[2024-04-23 07:27] LABS: BILIRUBIN,URINE NEGATIVE (NEGATIVE); BLOOD/HEMOGLOBIN,URINE NEGATIVE (NEGATIVE); GLUCOSE, URINE NEGATIVE (NEGATIVE); KETONES,URINE NEGATIVE (NEGATIVE); LEUKOCYTE ESTERASE ,URINE 2+ (NEGATIVE); NITRITES,URINE NEGATIVE (NEGATIVE); PROTEIN,URINE 1+ (NEGATIVE); UROBILINOGEN,URINE 1+ (NORMAL)
[2024-04-23 07:28] LABS: COLOR,URINE YELLOW (YELLOW)
[2024-04-23 07:29] LABS: APPEARANCE,URINE SLIGHTLY HAZY (CLEAR)
[2024-04-23 07:29] LABS: ALBUMIN 3.1 g/dL (3.4-5.0); CALCIUM 8.3 mg/dL (8.5-10.1); CARBON DIOXIDE 23.8 mmol/L (21-32); CREATININE 2.93 mg/dL (0.70-1.30); POTASSIUM 4.7 mmol/L (3.5-5.1); TOTAL PROTEIN 7.3 g/dL (6.4-8.2)
[2024-04-23 07:47] LABS: BACTERIA,URINE TRACE /HPF (NEGATIVE); RBC,URINE 0-2 /HPF (0-3); SQUAMOUS EPITHELIAL CELL,UR RARE /HPF (NEGATIVE)
--- NOTE | 2024-04-23 07:47 | CT ---
EXAM: CHEST W/O CON HISTORY: WHEEZING; RENAL DISEASE, HTN, GERD SX: TELMA, THYROID COMPARISON: CT abdomen and pelvis dated 08/11/2023 TECHNIQUE: Multiple axial images of the chest were obtained from the thoracic inlet to the upper abdomen without the administration of IV contrast. Dose reduction techniques including Automated Exposure Control ( AEC) and adjustment of mA and kV were utilized. FINDINGS: The mediastinum does not demonstrate significant pathological lymphadenopathy. There is no paracardia l effusion observed. The thoracic aorta is normal in its contour without evidence for aneurysmal dila tation. Evaluation of the lung parenchyma focal airspace opacity in the right lower lobe is observed for whic h continued follow up to complete resolution will be needed to exclude underlying mass versus chronic atelectasis. A very small right-sided pleural effusion is noted to be present as well.. Subsegment al atelectasis of the left base is noted.. The bony thorax is unremarkable in its appearance . The v isualized portions of the upper abdomen are grossly unremarkable . IMPRESSION: Focal density in the right lower lobe is observed with surrounding ground-glass opacity. Finding lik everett represents developing infiltrate versus subsegmental and chronic atelectasis with a very small pl eural effusion layering within the right hemithorax. Otherwise unremarkable evaluation of the chest without contrast. THIS IS AN ELECTRONICALLY VERIFIED FINAL REPORT 04/23/2024 7:43 AM - Electronically signed by William Alcantara MD
--- NOTE | 2024-04-23 07:48 | CT ---
EXAM: ABDOMEN/PELVIS W/O CON HISTORY: Pt states that last night while sitting down watching tv he had a sudden onset of dull aching pain in his right flank/lower back. Pt denies any injury.; GERD, HTN, RENAL DISEASE SX: TELMA, THYOID COMPARISON: CT abdomen pelvis 08/11/2023 TECHNIQUE: Multiple axial images of the abdomen and pelvis were obtained from the lung bases to the pubic symphy sis without the administration of IV contrast. Dose reduction techniques including Automated Exposu re Control (AEC) and adjustment of mA and kV were utilized. FINDINGS: The visualized portions of the lung bases demonstrate focal consolidation of the right lower lobe and subsegmental atelectasis left base. Small right-sided pleural effusion is noted to be present as we ll.. The liver, spleen, pancreas, kidneys, and adrenal glands are unremarkable in their CT appearanc e. Clips are noted in the gallbladder fossa consistent with prior cholecystectomy . No significant me senteric lymphadenopathy or stranding can be observed. No free fluid or free air is seen within the a bdomen. The appendix is unremarkable in its CT appearance. No bowel wall thickening or bowel dilatat ion is present. The colon is unremarkable. Specifically, there is no diverticulosis noted within the sigmoid colon. The urinary bladder is grossly unremarkable. The bony structures are grossly intact. IMPRESSION: Focal consolidation of the right base with small pleural effusion. Otherwise no acute abnormality of the abdomen or pelvis can be identified. THIS IS AN ELECTRONICALLY VERIFIED FINAL REPORT 04/23/2024 7:45 AM - Electronically signed by William Alcantara MD
[2024-04-23] MEDS: LEVAQUIN PREMIX IV 500 MG 500 MG/100 ML BAG IV ONE ×2 (08:16→09:15)
[2024-04-23] MEDS: DILAUDID INJ IVP ONE (08:21)
[2024-04-23] MEDS: DILAUDID INJ IM ONE (08:32)
[2024-04-23] MEDS: NS 1,000 ML IV 1,000 ML ONE ×2 (09:12→11:44)
[2024-04-23] MEDS: TORADOL 30 MG VIAL ONE (09:13)
[2024-04-23] MEDS: DILAUDID INJ ONE (09:14)
[2024-04-23] MEDS: ZOFRAN INJ 4 MG VIAL ONE (09:14)
[2024-04-23 09:24] VITALS: BMI 41.3
[2024-04-23] MEDS ORDERED: RESTORIL CAP 15 MG PO PRN (09:34)
[2024-04-23] MEDS: FLEXERIL TAB 10 MG PO SCH (09:55)
[2024-04-23] MEDS: SINGULAIR TAB 10 MG PO SCH (09:56)
[2024-04-23] MEDS: PERCOCET TAB 5/325 MG PO PRN (09:56)
[2024-04-23] MEDS: FORTAZ or TAZICEF VIAL INJ 2 G in NS 100 ML IV 100 ML IV SCH (09:57)
[2024-04-23] MEDS: SYNTHROID 112 mcg TAB PO SCH (10:13)
[2024-04-23] MEDS: LOVENOX INJ 30 MG SYR SC SCH (10:14)
[2024-04-23] MEDS: VSL#3 PROBIOTIC CAP 112.5 B PO SCH (10:14)
[2024-04-23] MEDS: TENORMIN PO SCH (10:14)
[2024-04-23] MEDS ORDERED: BENADRYL INJ 50 MG VIAL ONE (11:20)
[2024-04-23] MEDS ORDERED: SOLU-Medrol 125 MG VIAL ONE (11:21)
[2024-04-23] MEDS: BENADRYL INJ 50 MG VIAL IV ONE (11:39)
[2024-04-23] MEDS: VISTARIL PO PRN (11:40)
[2024-04-23] MEDS: SOLU-Medrol 125 MG VIAL IVP ONE (11:41)
[2024-04-23] MEDS: VISTARIL PO ONE (11:43)
[2024-04-23] MEDS ORDERED: NS 1/2 1,000 ML IV 1,000 ML IV ONE ×2 (11:56→20:25)
[2024-04-23] MEDS: NS 1/2 1,000 ML IV 1,000 ML IV SCH (12:07)
[2024-04-23] MEDS: DUONEB 0.5 MG/3 MG (3 mL) NEB SCH (13:19)
[2024-04-23] MEDS: PULMICORT NEB TX 0.5 MG NEB SCH (20:08)
[2024-04-23] MEDS: PriLOSEC PO SCH (21:29)
[2024-04-23] MEDS: ALPRAZOLAM ODT PO PRN (21:29)
[2024-04-23] MEDS: COZAAR PO SCH (21:29)
[2024-04-24 06:15] LABS: BASOPHILS % (AUTO) 0.2 % (0.2-1.0); HEMATOCRIT 38.9 % (42.0-54.0); HEMOGLOBIN 12.9 g/dL (13.5-18.0); LYMPHOCYTES # (AUTO) 0.9 X10^3/uL (1.3-2.9); LYMPHOCYTES % (AUTO) 4.5 % (21.0-51.0); MEAN CORPUSCULAR HEMOGLOBIN 29.7 pg (27.0-34.0); MEAN CORPUSCULAR HGB CONC 33.2 g/dL (33.0-35.0); MEAN CORPUSCULAR VOLUME 89.3 fL (80.0-100.0); MEAN PLATELET VOLUME 8.6 fL (7.4-11.0); MONOCYTES # (AUTO) 1.3 x10^3/uL (0.3-0.8); MONOCYTES % (AUTO) 6.4 % (0.0-13.0); NEUTROPHILS # (AUTO) 17.5 x10^3/uL (2.2-4.8); NEUTROPHILS % (AUTO) 88.9 % (42.0-75.0); PLATELET COUNT 254 X10^3/uL (150.0-450.0); RED BLOOD COUNT 4.36 X10^6/uL (4.7-6.0); WHITE BLOOD COUNT 19.6 X10^3/uL (3.6-10.0)
[2024-04-24 07:02] LABS: ALBUMIN 2.5 g/dL (3.4-5.0); CALCIUM 8.6 mg/dL (8.5-10.1); CARBON DIOXIDE 22.4 mmol/L (21-32); COR CA(FOR HYPOALB) 9.8 mg/dL (8.5-10.1); CREATININE 3.14 mg/dL (0.70-1.30); POTASSIUM 5.1 mmol/L (3.5-5.1); TOTAL PROTEIN 6.5 g/dL (6.4-8.2)
[2024-04-24] MEDS: NS 1/2 1,000 ML IV 1,000 ML IV ONE ×2 (08:46→12:53)
[2024-04-24] MEDS: FARXIGA PO SCH (08:47)
[2024-04-24] MEDS: ROCEPHIN VIAL 1 GRAM 1 G in NS 100 ML IV 100 ML IV SCH (08:49)
[2024-04-24] MEDS: LEVAQUIN PREMIX IV 250 MG 250 MG/50 ML BAG IV SCH (08:49)
[2024-04-24] MEDS ORDERED: FARXIGA PO SCH ×2 (09:00)
[2024-04-24] MEDS ORDERED: COZAAR PO SCH ×2 (09:00→21:00)
[2024-04-24] MEDS: NS 1,000 ML IV 1,000 ML IV ONE (09:06)
[2024-04-24] MEDS: NS 1,000 ML IV 1,000 ML IV SCH (11:14)
[2024-04-24 11:38] VITALS: RESP 21
[2024-04-24 12:14] LABS: CALCIUM 8.1 mg/dL (8.5-10.1); CARBON DIOXIDE 25.7 mmol/L (21-32); CREATININE 2.87 mg/dL (0.70-1.30)
[2024-04-24 12:17] LABS: POTASSIUM 5.2 mmol/L (3.5-5.1)
[2024-04-24] MEDS ORDERED: NS 1/2 1,000 ML IV 1,000 ML IV ONE (12:43)
[2024-04-24 12:57] VITALS: BP 122/71; PULSE 75; TEMP 97.6; O2SAT 98
--- NOTE | 2024-04-24 13:16 | RAD ---
EXAM:CHEST, 1 VIEWHISTORY:PNEUMONIA ;COMPARISON:Prior study or studies were utilized for comparison during interpretation with the most relevant dated yesterdayTECHNIQUE:CHEST, 1 VIEWFINDINGS:Chest:Lines and tubes: NoneMediastinum: Cardiac and mediastinal shadow is within normal limits for size and contour.Pulmonary vessels: No pulmonary vascular congestion.Lung dunn: No suspicious airspace opacity.Pleura: No effusion. No pneumothorax.Bones and soft tissues: No acute osseous or soft tissue abnormality.IMPRESSION:1. No acute cardiopulmonary abnormality2. Right base consolidation seen on yesterday's CT is not seen on today's radiographTHIS IS AN ELECTRONICALLY VERIFIED FINAL REPORT04/24/2024 1:11 PM - Electronically signed by Pa Shukla MD
--- NOTE | 2024-04-24 13:33 | EKG ---
Test Reason : pneumonia Blood Pressure : */* mmHG Vent. Rate : 79 BPM Atrial Rate : 79 BPM P-R Int : 152 ms QRS Dur : 80 ms QT Int : 374 ms P-R-T Axes : 37 46 27 degrees QTc Int : 428 ms Normal sinus rhythm Normal ECG No previous ECGs available Confirmed by Pérez Ramirez MD ([id number]) on 04/25/2024 7:03:05 AM Referred By: Confirmed By: Pérez Ramirez MD
== END 2024-04-24 15:10 | disposition home or self-care (01) ==
LOC: MED/SURG 06:58 → ER 06:58 → MED/SURG 08:55
PROVIDERS: ADMIT Family Medicine; ATTEND Family Medicine
DX: N18.9 Chronic kidney disease, unspecified; Z20.822 Contact with and (suspected) exposure to COVID-19; N17.8 Other acute kidney failure; R10.84 Generalized abdominal pain; R07.89 Other chest pain; K21.9 Gastro-esophageal reflux disease without esophagitis; J90 Pleural effusion, not elsewhere classified; Z65.8 Other specified problems related to psychosocial circumstances; E86.0 Dehydration; R73.09 Other abnormal glucose; I12.9 Hypertensive chronic kidney disease with stage 1 through stage 4 chronic kidney disease, or unspecified chronic kidney disease; R79.82 Elevated C-reactive protein (CRP); J18.8 Other pneumonia, unspecified organism